=== PATIENT | male | born 1975 | race Caucasian/White ===

== ENCOUNTER 2019-10-30 16:57 | Emergency (ER) | payer SELFPAY ==
[2019-10-30 17:07] VITALS: BP 146/100
--- NOTE | 2019-10-30 17:24 | ER Document Report ---
HPI - HPI Patient complains to provider of: right foot pain Time Seen by Provider: 10/30/19 17:10 Onset: Other - 12 years Quality of pain: Achy Severity: Severe Context: 44-year-old male presents with right foot pain reports inflamed. He reports he has had it for 12 years. He is here for tramadol. Patient complains of pain with movement and walking. No other complaint such as fever vomiting diarrhea no trauma. Patient reports he is tried everything ice wedges nothing helps. Patient repeats he is here for pain medication. Associated Symptoms: None Exacerbated by: Walking Relieved by: Denies Similar symptoms previously: Yes Recently seen / treated by doctor: No Past Medical History - General Information source: Patient - Social History Smoking Status: Unknown if Ever Smoked Occupation: different jobs Family History: None - unknown Patient has suicidal ideation: No Patient has homicidal ideation: No - Medical History Medical History: Other - unknown patient left before answering questions - Past Medical History Cardiac Medical History: Reports: Hx Hypertension Surgical Hx: Other - unknown, patient left before finishing treatment Vertical Provider Document - CONSTITUTIONAL Agree With Documented VS: Yes Exam Limitations: No Limitations General Appearance: WD/WN - HEENT HEENT: Atraumatic - NECK Neck: Supple - RESPIRATORY Respiratory: No Respiratory Distress - CARDIOVASCULAR Cardiovascular: Tachycardia - MUSCULOSKELETAL/EXTREMETIES Musculoskeletal/Extremeties: MAEW, FROM, Tender - Patient right foot wrapped in Kev wrap. Unwrapped by patient. No deformity, no ecchymosis, no erythema no swelling no warmth. Patient reports that he has had foot pain for the past 12 years history of plantar fasciitis. - NEURO Level of Consciousness: Awake, Alert, Appropriate Motor/Sensory: No Motor Deficit - DERM Integumentary: Warm, Dry Course - Re-evaluation Re-evalutation: 10/30/19 17:20 44-year-old male presents with complaints of right foot pain. Patient has wrapped his foot and Kev wrap. He reports his foot is inflamed and he needs tramadol. Patient reports history of plantar fasciitis has had it for 12 years. Reports it hurts to walk. We started discussing treatment for plantar fasciitis to include ice rest elevate wedges in the shoes exercises and NSAIDs. Patient reports he has tried all that nothing works he needs some tramadol. I discussed further treatment to follow-up with a ware server for injections or even surgery if indicated. Patient reports I do not have any insurance that is why I am here I came to the emergency department for some tramadol. Patient was declined tramadol. I instructed on NSAIDs ice and again started to teach patient about plantar fasciitis. Patient became upset and irritated and got up and walked out. - Vital Signs Vital signs: Temp Pulse Resp BP Pulse Ox 98.1 F 100 16 146/100 H 99 10/30/19 17:04 10/30/19 17:04 10/30/19 17:04 10/30/19 17:04 10/30/19 17:04 Discharge - Discharge Clinical Impression: Right foot pain, Plantar fasciitis of right foot Condition: Stable Disposition: AGAINST MEDICAL ADVICE Referrals: LOCALMD,NO [Primary Care Provider] - Follow up as needed
== END 2019-10-30 17:15 | disposition left against medical advice (07) ==
LOC: ER 16:57
DX: M72.2 Plantar fascial fibromatosis (principal); M79.671 Pain in right foot; I10 Essential (primary) hypertension; Z53.29 Procedure and treatment not carried out because of patient's decision for other reasons
CPT/HCPCS: 99283